=== PATIENT | male | born 1960 | race African-American/Black ===

== ENCOUNTER 2016-08-13 07:36 | Inpatient (IN) ==
[2016-08-13 08:17] LABS: Basophils % 0.1 % (0.0-0.8); Eosinophils % 0.5 % (0.00-10.9); Hematocrit 41.1 VOL% (42.0-52.0); Hemoglobin 14.4 GM/DL (14.0-18.0); Immature Granulocytes % 0.3 %; Immature Granulocytes Absolute 0.02 #; Lymphocytes # 1.4 10*3/uL (1.4-4.0); Lymphocytes % 19.1 % (21.2-54.2); Mean Corpuscular Hemoglobin 32 PG (27-34); Mean Corpuscular Volume 89.9 FL (87-102); Mean Platelet Volume 10.1 FL (9.6-12.0); Monocytes # 0.6 10*3/uL (0.11-0.8); Monocytes % 8.5 % (1.7-12.7); Neutrophils # 5.2 10*3/uL (1.4-7.4); Neutrophils % 71.5 % (38.7-73.9); Platelet Count 181 10*3/uL (130-400); Red Blood Count 4.57 10*6/uL (3.8-5.5); White Blood Count 7.3 10*3/uL (4.5-13.71)
--- NOTE | 2016-08-13 08:43 | XRay Report ---
History: Abdominal pain radiating to back. Chronic pancreatitis Date: 08/13/2016 Study: Flat and erect abdomen Comparison exam: Abdominal x-ray August 10, 2016 There is no evidence of pneumoperitoneum. The bowel gas pattern is nonobstructive without gross mass lesion. No radiopaque calculi are seen. Phleboliths overlie the pelvis. The osseous structures are unremarkable. Impression: No acute abdominal process PROCEDURE INTERPRETED AT [facility] DEPARTMENT OF RADIOLOGY Final Report Signed by: Dr. Belle Jolly
[2016-08-13 08:46] LABS: Albumin 3.8 G/DL (3.4-5.0); Bilirubin,Total 0.5 MG/DL (0.2-1.0); Calcium 9.3 MG/DL (8.5-10.1); Potassium 4.2 MMOL/L (3.5-5.1); Total Protein 7.9 G/DL (6.4-8.3)
[2016-08-13 08:59] LABS: Lactic Acid 1.2 MMOL/L (0.4-2.0)
[2016-08-13] MEDS ORDERED: hydrALAZINE 20 MG/1 ML VIAL IV STA ×2 (09:16→11:24)
[2016-08-13 09:42] LABS: Barbiturates Screen,Urine Negative (Negative); Benzodiazepines Screen,Urine Negative (Negative); Cannabinoid Screen,Urine Negative (Negative); Opiate Screen,Urine Positive (Negative); Phencyclidine Screen,Urine Negative (Negative)
[2016-08-13] MEDS ORDERED: hydrALAZINE 20 MG/1 ML VIAL ONE (09:57)
[2016-08-13] MEDS ORDERED: ONDANSETRON 4 MG/2 ML VIAL IV STA (09:58)
[2016-08-13] MEDS ORDERED: HYDROmorphone 2 MG/1 ML VIAL IV STA (09:58)
[2016-08-13] MEDS ORDERED: ONDANSETRON 4 MG/2 ML VIAL ONE (10:43)
[2016-08-13] MEDS ORDERED: HYDROmorphone 2 MG/1 ML VIAL ONE (10:43)
--- NOTE | 2016-08-13 11:07 | Emergency Department Note ---
Stevie Bull Brittany, am scribing for, and in the presence of, Mynor Parks MD 08:04. Charly Bull Doug C, MD, personally performed the services described in this documentation, ascribed by Keri Hubbard in my presence, and it is both accurate and complete . Arrival - Arrival Chief Complaint: Abdominal / Flank Pain Stated Complaint: back pain ED Nursing Triage Note: c/o abd pain radiating to back that has been hurting for a while. states that his pancreatitis is flared up and he needs to be admitted. seen yesterday in ED Mode of Arrival: Ambulatory Limitations: No Limitations Source: Patient, RN Notes Reviewed Time Seen by Provider: 08/13/16 08:02 - History of Present Illness HPI Narrative: Patient comes in today complaining of abdominal pain. Patient states he is just in the emergency room yesterday with the same complaint. He has a history of chronic pancreatitis and tells me he is having a flareup. He denies use of alcohol. He is not having any fever or chills associated with this. Allergies/Adverse Reactions: Allergies Allergy/AdvReac Type Severity Reaction Status Date / Time No Known Allergies Allergy Verified 08/06/16 00:07 Home Medications: Home Medications Medication Instructions Recorded Confirmed Type Allopurinol 150 mg PO DAILY 07/29/16 08/13/16 History Amitriptyline [Elavil] 25 mg PO DAILY 07/29/16 08/13/16 History Insulin Aspart Prot/Asp 70/30 30 unit SUBCUT BID 07/29/16 08/13/16 History [NovoLOG Mix 70/30] Labetalol Tab [Trandate Tab] 200 mg PO BID 07/29/16 08/13/16 History Lisinopril/Hydrochlorothiazide 1 each PO DAILY 07/29/16 08/13/16 History [Lisinopril-Hctz 20-12.5 mg Tab] Omeprazole 40 mg PO DAILY 07/29/16 08/13/16 History Rosuvastatin [Crestor] 10 mg PO BEDTIME 07/29/16 08/13/16 History metFORMIN [Glucophage] 850 mg PO BID W/MEALS 07/29/16 08/13/16 History HYDROcodone/ACETAMIN 10-325 [[place] 1 tablet PO Q6H PRN #30 tablet 08/12/1608/13 Rx 10325] Review of System - Review of System 12 point system: reviewed and no additional remarkable complaints except as stated - Review of System Constitutional: Absent: chills, fever Eyes: Absent: vision change Head/Ears/Nose/Throat: Absent: nasal drainage, sore throat Respiratory: Absent: cough, respiratory distress Cardiovascular: Absent: chest pain, palpitations Gastrointestinal: Present: abdominal pain. Absent: nausea, vomiting, diarrhea, constipation Genitourinary male: Absent: urgency, dysuria, frequency Musculoskeletal: Absent: arm pain, back pain, leg pain, neck pain Skin: Absent: rash Neurological: Absent: headache Psychiatric: Absent: anxiety, depression Endocrine: Absent: fatigue Hematological/Lymphatic: Absent: easy bleeding, easy bruising Medical,Surgical,& Family Hx - Medical History Cardio: History of: Hypertension Neurology: No history of: Brain Aneurysm, Cerebral Hemorrhage, Cerebrovascular Accident , Cerebral Palsy, Dementia, Migraine, Multiple Sclerosis, Parkinson's Disease, Peripheral Neuropathy, Seizures, TIA, Vertigo, Neurologocal Cancer HEENT: History of: Eye Problem (wear glasses) Endocrine: History of: Diabetes Mellitus (IDDM), Diabetes Mellitus (NIDDM) Rheumatology: History of;: Gout Gastrointestinal: History of: GERD, Pancreatitis (ETOH abuse Hx) Musculoskeletal: History of: Musculoskeletal Problems (Hardware to Left ankle) No history of: Amputation Hematology: No history of: Blood Transfusion Reaction - Surgical History Thoracic Surgeries: Patient denies;: Organ Transplant, Lobectomy Neurologic Surgeries: Patient denies: Brain Aneurysm, Cerebral Hemorrhage, Neurologic Surgery HEENT Surgeries: Patient denies: Tonsilectomy & Adenoidectomy Abdominal Surgeries: Surgical HX of: Colonoscopy, EGD Orthopedic Surgeries: Patient denies;: Implanted Devices, Orthopedic Surgery, Spinal Surgery, Total Hip Replacement, Total Knee Replacement - Family History Family History: Reports;: Family Diabetes, Family Hypertension - Social History Smoking Status: Current every day smoker Frequency of Alcohol Use: None Type of Drug Use: None Exam Vital Signs: Vital Signs Temperature 97.9 F 08/13/16 07:38 Pulse Rate 88 08/13/16 08:37 Respiratory Rate 18 08/13/16 08:37 Blood Pressure 172/124 08/13/16 08:37 O2 Sat by Pulse Oximetry 98 08/13/16 08:37 - General General appearance: alert, in no apparent distress - Head Head exam: Present: atraumatic, normocephalic - Eye Eye exam: Present: PERRL, EOMI - ENT ENT exam: Present: mucous membranes moist, TM's normal bilaterally - Neck Neck exam: Present: full ROM, trachea midline. Absent: tenderness - Chest Chest inspection: Present: symmetric chest wall rise. Absent: tenderness - Respiratory Respiratory exam: Present: normal lung sounds bilaterally. Absent: rales, rhonchi, wheezes - Cardiovascular Cardiovascular exam: Present: regular rate, normal rhythm, normal heart sounds. Absent: murmur, rubs, gallop - Abdominal Exam Abdominal exam: Present: soft, tenderness (upper abdomen), normal bowel sounds. Absent: distention - Extremities Exam Extremities exam: Present: full ROM. Absent: tenderness - Back Exam Back exam: Present: full ROM. Absent: tenderness - Neurological Exam Neurological exam: Present: alert, oriented X3 - Psychiatric Psychiatric exam: Present: normal affect, normal mood - Skin Skin exam: Present: warm, dry, intact, normal color Course Course Narrative: Patient's clinical presentation, laboratory and radiographic findings were discussed with Dr. Arcadio Engle who will evaluate the patient for admission. Results - Labs CBC & BMP: 08/13/16 08:08 08/13/16 08:08 Lab Results: I have reviewed the patients labs Labs: Laboratory Tests 08/13/16 08:08 WBC 7.3 D RBC 4.57 D Hgb 14.4 D Hct 41.1 L MCV 89.9 MCH 32 MCHC 35.0 RDW 13.0 Plt Count 181 D MPV 10.1 Neut % (Auto) 71.5 Lymph % (Auto) 19.1 L Greer % (Auto) 8.5 Eos % (Auto) 0.5 Baso % (Auto) 0.1 Neut # (Auto) 5.2 Lymph # (Auto) 1.4 Greer # (Auto) 0.6 Eos # (Auto) 0.0 Baso # (Auto) 0.0 Immature Gran % 0.3 Nucleated RBC % 0.0 Immature Gran # 0.02 Nucleated RBCs # 0.00 Laboratory Tests 08/13/16 08:08 Sodium 143 Potassium 4.2 Chloride 104 Carbon Dioxide 29 Anion Gap 14.2 BUN 8 Creatinine 0.90 GFR Calculation 142 BUN/Creatinine Ratio 8.00 Glucose 109 H Calculated Osmolality 283.0 Calcium 9.3 Total Bilirubin 0.50 AST 25 ALT 22 Alkaline Phosphatase 77 Total Protein 7.9 Albumin 3.8 Globulin 4.1 H Albumin/Globulin Ratio 0.9 L Lipase 1034.0 H D Laboratory Tests 08/13/16 09:02 Urine Opiates Screen Positive H Ur Barbiturates Screen Negative Ur Phencyclidine Scrn Negative U Amphetamine/Methamph Negative U Benzodiazepines Scrn Negative U Cocaine Metab Screen Negative U Cannabinoids Screen Negative - Diagnostic Findings Procedure: Abdominal x-ray: report reviewed by me (No acute abdominal process.) , CT Abdomen and Pelvis: report reviewed by me (Pancreatic pseudocyst noted.) Disposition Clinical Impression: Acute pancreatitis, Pancreatic pseudocyst Case discussed with: patient Disposition: Still a Patient Condition: Stable Time of Disposition: 11:06
--- NOTE | 2016-08-13 11:14 | CT Report ---
History: Pancreatitis Date: 08/13/2016 Study: CT abdomen and pelvis with IV contrast Comparison exam: CT abdomen and pelvis July 29, 2016 Technique: Spiral CT sections were obtained from the lung bases to the pubic symphysis following 100 mL Omnipaque 350 IV. Total DLP measures 806.7 mGy*cm. CT abdomen: The partially visualized lung bases are clear. There is no gross pleural or pericardial effusion. There is minimal diffuse fatty infiltration of the liver. The liver, biliary ducts, gallbladder, adrenal glands, and kidneys are otherwise stable in appearance without change. There is a benign 11 mm simple cyst in the anterior mid left kidney. There is again noted to be a fluid density cystic lesion in the head of the pancreas compatible with pseudocyst. This measures 5 cm diameter as compared to 5.8 cm in the axial plane on the previous study. There is no interval worsening in the appearance of the pancreas. There is again noted be a complex 4 cm fluid collection at posterior margin of the spleen, chronic in nature. There is no aortic aneurysm. There is no evidence of pneumoperitoneum or bowel obstruction. The appendix is normal. There is circumaortic left renal vein. There is no lymphadenopathy by short axis diameter criteria. CT pelvis: No pelvic mass is seen. There is some mild free fluid in the pelvis which is slightly increased. There is chronic L5 spondylolysis bilaterally without spondylolisthesis. Impression: Persistent but mildly improved pancreatic pseudocyst compared to the previous study. Increased mild free fluid in the pelvis which could be related to pancreatitis. Otherwise unchanged PROCEDURE INTERPRETED AT [facility] DEPARTMENT OF RADIOLOGY Final Report Signed by: Dr. Belle Jolly
--- NOTE | 2016-08-13 11:29 | Hospitalist History & Physical ---
Assessment and Plan - Time spent with patient Time spent with patient: Greater than 30 minutes (1) Acute pancreatitis Status: Acute Assessment and plan: Patient be readmitted with acute on chronic pancreatitis. We will hold him nothing by mouth and hydrate. We'll provide IV proton pump inhibitor, IV analgesics, IV anti-emetics. We'll repeat laboratory studies in the a.m. We' ll go ahead and consult GI for any further recommendations at this time. Current Visit: No (2) Diabetes mellitus Status: Chronic Assessment and plan: We'll hold him nothing by mouth and provide IV hydration. We'll place him on Accu-Cheks with sliding scale insulin only at this time. Current Visit: Yes Qualifiers: Diabetes mellitus type: type 2 (3) Pseudocyst of pancreas Status: Chronic Assessment and plan: Patient has history of pancreatic pseudocyst. This is noted on CT scan today and may be slightly improved. We'll have GI review and make any further recommendations. Current Visit: No (4) Hypertension Status: Acute Assessment and plan: Patient has chronic essential hypertension. He is hypertensive at this point likely secondary to his pain. We'll treat his pain and then provide as needed antihypertensives along with routine IV Vasotec while being held nothing by mouth. Current Visit: Yes Qualifiers: Hypertension type: essential hypertension Qualified Code(s): I10 - Essential (primary) hypertension History of Present Illness Chief complaint: abdominal pain History of present illness: Mr. Kamara is a 56 year old male with a history of pancreatitis who was discharged on 08/12/16, however returned on the supervisor inspection room of 08/13/16 and was discharged from the emergency room. He came back approximately 8 a.m. with increasing abdominal pain and workup revealed elevated lipase of greater than [address] scan was performed which revealed pancreatic pseudocyst which may be slightly improved from prior. He denies any fever, chills, nausea, vomiting , diarrhea, constipation, melena, hematochezia, hematemesis. He states that he did not have any alcohol to drink yesterday or last night. He states he has been drinking some water but it increases his abdominal discomfort and he's been avoiding it. At this time he'll be readmitted for IV hydration and pain control. We'll consult GI to assist with any further recommendations. Home Medications Medication Instructions Recorded Confirmed Type Allopurinol 150 mg PO DAILY 07/29/16 08/13/16 History Amitriptyline [Elavil] 25 mg PO DAILY 07/29/16 08/13/16 History Insulin Aspart Prot/Asp 70/30 30 unit SUBCUT BID 07/29/16 08/13/16 History [NovoLOG Mix 70/30] Labetalol Tab [Trandate Tab] 200 mg PO BID 07/29/16 08/13/16 History Lisinopril/Hydrochlorothiazide 1 each PO DAILY 07/29/16 08/13/16 History [Lisinopril-Hctz 20-12.5 mg Tab] Omeprazole 40 mg PO DAILY 07/29/16 08/13/16 History Rosuvastatin [Crestor] 10 mg PO BEDTIME 07/29/16 08/13/16 History metFORMIN [Glucophage] 850 mg PO BID W/MEALS 07/29/16 08/13/16 History HYDROcodone/ACETAMIN 10-325 [[place] 1 tablet PO Q6H PRN #30 tablet 08/12/1608/13 Rx 10-325] Allergies Allergy/AdvReac Type Severity Reaction Status Date / Time No Known Allergies Allergy Verified 08/06/16 00:07 Medical,Surgical,& Family Hx - Medical History Cardio: History of: Hypertension Neurology: No history of: Brain Aneurysm, Cerebral Hemorrhage, Cerebrovascular Accident , Cerebral Palsy, Dementia, Migraine, Multiple Sclerosis, Parkinson's Disease, Peripheral Neuropathy, Seizures, TIA, Vertigo, Neurologocal Cancer HEENT: History of: Eye Problem (wear glasses) Endocrine: History of: Diabetes Mellitus (NIDDM) Rheumatology: History of;: Gout Gastrointestinal: History of: GERD, Pancreatitis (ETOH abuse Hx) Musculoskeletal: History of: Musculoskeletal Problems (Hardware to Left ankle) No history of: Amputation Hematology: No history of: Blood Transfusion Reaction - Surgical History Thoracic Surgeries: Patient denies;: Organ Transplant, Lobectomy Neurologic Surgeries: Patient denies: Brain Aneurysm, Cerebral Hemorrhage, Neurologic Surgery HEENT Surgeries: Patient denies: Tonsilectomy & Adenoidectomy Abdominal Surgeries: Surgical HX of: Colonoscopy, EGD Orthopedic Surgeries: Patient denies;: Implanted Devices, Orthopedic Surgery, Spinal Surgery, Total Hip Replacement, Total Knee Replacement - Family History Family History: Reports;: Family Diabetes, Family Hypertension - Social History Smoking Status: Current every day smoker Frequency of Alcohol Use: None Type of Drug Use: None Marital Status: Single Lives With:: Alone Functional capacity: independent ambulation 12 point system: reviewed and no additional remarkable complaints except as stated Exam - Constitutional Vitals: Period Temp Pulse Resp BP Sys/Mendoza Pulse Ox Last 24 Hr 97.9 F 87-90 18-20 172-208/121-125 97-98 General appearance: mild distress - Head Head exam: Present: normocephalic, atraumatic - Eye Eye exam: Present: EOMI. Absent: scleral icterus Pupils: Present: DENYS - ENT ENT exam: Present: normal oropharynx - Neck Neck exam: Absent: lymphadenopathy, meningismus, tenderness, thyromegaly - Respiratory Respiratory exam: Present: clear to auscultation bilaterally. Absent: rales, rhonchi, wheezes - Cardiovascular Cardiovascular exam: Present: regular rate and rhythm. Absent: gallop, JVD, tachycardia - GI/Abdominal GI/Abdominal exam: Present: normal bowel sounds, tenderness (diffusely tender but greatest in the epigastrium with positive guarding but no rebound), soft. Absent: distended, mass, rebound - Extremities Exam Extremities exam: Absent: calf tenderness, edema - Back Exam Back exam: Present: normal inspection - Neurological Exam Neurological exam: Present: alert, oriented X3, CN II-XII intact. Absent: motor sensory deficit - Psychiatric Psychiatric exam: Present: normal affect, normal mood. Absent: agitated, anxious - Skin Skin exam: Present: warm, dry. Absent: erythema, rash Results - Labs CBC & BMP: 08/13/16 08:08 08/13/16 08:08 Lab Results: I have reviewed the past 24 hour labs - Diagnostic Findings Procedure: KUB x-ray: report reviewed by me, CT Abdomen and Pelvis: report reviewed by me Quality Measures - VTE Deep Vein Thrombosis/Pulmonary Embolism Present on Admission: No
[2016-08-13] MEDS ORDERED: LORazepam 2 MG/1 ML VIAL IV PRN (12:51)
[2016-08-13] MEDS ORDERED: MORPHINE 2 MG/1 ML SYRINGE IV PRN (12:51)
[2016-08-13] MEDS ORDERED: ONDANSETRON 4 MG/2 ML VIAL IV PRN (12:51)
[2016-08-13] MEDS ORDERED: hydrALAZINE 20 MG/1 ML VIAL IV PRN (12:51)
[2016-08-13] MEDS ORDERED: DEXTROSE 50% 25 GM/50 ML VIAL IV PRN (12:51)
[2016-08-13] MEDS ORDERED: GLUCAGON 1 MG VIAL IM PRN (12:51)
[2016-08-13] MEDS: INSULIN REGULAR 100 UNIT/ML SUBCUT SCH ×2 (13:00→17:38)
[2016-08-13] MEDS: SODIUM CHLORIDE 0.9% 1,000 ML IV SCH ×2 (13:01→19:42)
[2016-08-13] MEDS: ENOXAPARIN 40 MG/0.4 ML SYRINGE SUBCUT SCH (13:17)
[2016-08-13] MEDS: PANTOPRAZOLE 40 MG VIAL IV SCH (13:17)
[2016-08-13] MEDS: ENALAPRIL 2.5 MG/2 ML VIAL IV SCH ×2 (13:33→20:18)
[2016-08-13] MEDS: THIAMINE 200 MG/2 ML VIAL IV SCH (13:34)
[2016-08-13] MEDS ORDERED: HYDROmorphone 2 MG/1 ML VIAL IM PRN (14:32)
[2016-08-13] MEDS ORDERED: HYDROmorphone 2 MG/1 ML VIAL IV PRN (14:40)
--- NOTE | 2016-08-13 15:31 | Gastrointestinal Progress Note ---
Assessment and Plan (1) Constipation due to opioid therapy Status: Acute Assessment and plan: The patient left the hospital and unfortunately decided to imbibe and some fairly high fat high protein foods which may have set his pancreatitis off. Indeed he also likely produce worsening of his constipation in association with fluid shifts and initiation of peristalsis with the first fatty foods he had eaten since his hospitalization starting on 07/29/16. Narcotic use is certainly exacerbating his underlying constipation. We are going to give him an enema or to and as well as starting MiraLAX which should improve his pain considerably if this is all constipation-induced. Has not had a mild increase in his pancreatic enzymes back up from 233 to over thousand this time. We will need to follow this over time on a clear liquid diet. I don't believe he needs to be taken all the way back to being nothing by mouth for 5 years enough water and liquids to hydrate adequately in anticipation of future bowel movements. I' m cutting his narcotic dose in half. Current Visit: Yes (2) Acute pancreatitis Status: Acute Assessment and plan: Again this patient's lipase level has increased from 233-->1034. I think this is most likely due to exposure to high fat foods but alcohol may have played a role. We'll continue to observe on a clear liquid diet at this point. When he begins to take a diet again would strongly suggest use of moderate protein low fat diet. Current Visit: Yes (3) Pancreatic pseudocyst Status: Acute Assessment and plan: Will not reimage yet as it has not been 8 weeks unless the patient's lipase level continues to climb despite the above measures. Dr. Guevara will be back in town the day after tomorrow to resume care of this interesting individual. Current Visit: Yes Gastroenterology - PN: Subj Interval history: This is a patient who was seen by Dr. Guevara on his last admission please see full consult dictated by Dr. Pulliam and then follow-up notes by Dr. Guevara up until 08/02/16. The patient states that he was essentially well and had no pain when he was discharged from the hospital yesterday on . Although he has a history of drinking he denies alcohol intake. He does state that he has not had a bowel movement in about for 5 days-- upon discharge he decided to eat some deer meat "slathered" in barbecue sauce, and developed sharp abdominal pain. His pseudocyst-type pain had been descibed as right upper lateral in intensity, and this new onset of pain was in the the low epigastric/periumbilical distribution with the ingestion of his food-- he rated the new pain as an 8 out of 10 in intensity with sharp cramping component to it consistent with constipation/peristaltic-type pain. He was readmitted to the hospital, for worsening of his "pancreatitis". The patient's lipase level had dropped down to 233 on 08/12/16 from its high point of 4012 on 07/29/16. Upon re-admission the patient's lipase level had increased back to 1034. Again the patient emphatically denies that he was drinking any alcohol on . Having mild nausea but no vomiting no fevers/chills. We'll need to see if the pain persists after improvement of underlying constipation and were gradually reintroduce a low-fat diet. Narcotics may make the constipation worsened I will probably cut these back significantly. Exam (Progress Note) - Constitutional Vitals: Period Temp Pulse Resp BP Sys/Mendoza Pulse Ox Last 24 Hr 98.3 F 101-109 18-20 170-185/98-110 96-100 General appearance: mild distress - Head Head exam: Present: normocephalic, atraumatic - Eye Eye exam: Present: EOMI Pupils: Present: DENYS - Respiratory Respiratory exam: Present: clear to auscultation bilaterally - Cardiovascular Cardiovascular exam: Present: diastolic murmur, regular rate and rhythm. Absent : systolic murmur - GI/Abdominal GI/Abdominal exam: Present: normal bowel sounds, tenderness (left cardia of the right lower quadrants.), soft - Neurological Exam Neurological exam: Present: alert, oriented X3, CN II-XII intact - Psychiatric Psychiatric exam: Present: normal affect, normal mood - Skin Skin exam: Present: warm Results - Labs CBC & BMP: 08/13/16 08:08 08/13/16 08:08 Specialty Discharge - Follow Up or Referrals - Discharge Medications No Action Allopurinol 150 mg PO DAILY Insulin Aspart Prot/Asp 70/30 [NovoLOG Mix 70/30] 30 unit SUBCUT BID HYDROcodone/ACETAMIN 10-325 [[place] 10-325] 1 tablet PO Q6H PRN #30 tablet PRN Reason: Pain Amitriptyline [Elavil] 25 mg PO DAILY metFORMIN [Glucophage] 850 mg PO BID W/MEALS Rosuvastatin [Crestor] 10 mg PO BEDTIME Lisinopril/Hydrochlorothiazide [Lisinopril-Hctz 20-12.5 mg Tab] 1 each PO DAILY Omeprazole 40 mg PO DAILY Labetalol Tab [Trandate Tab] 200 mg PO BID
[2016-08-13] MEDS: POLYETHYLENE GLYCOL POWDER 17 GM PACK PO SCH ×2 (16:02→19:59)
[2016-08-13] MEDS: HYDROmorphone 2 MG/1 ML VIAL IV PRN (20:14)
[2016-08-14] MEDS: INSULIN REGULAR 100 UNIT/ML SUBCUT SCH ×3 (00:10→12:47)
[2016-08-14] MEDS: ENALAPRIL 2.5 MG/2 ML VIAL IV SCH ×2 (02:28→09:37)
[2016-08-14 06:16] LABS: Basophils % 0.4 % (0.0-0.8); Eosinophils # 0.1 10*3/uL (0.0-0.87); Eosinophils % 1.5 % (0.00-10.9); Hematocrit 35.7 VOL% (42.0-52.0); Hemoglobin 12.2 GM/DL (14.0-18.0); Immature Granulocytes % 0.2 %; Immature Granulocytes Absolute 0.01 #; Lymphocytes # 2.1 10*3/uL (1.4-4.0); Lymphocytes % 40.4 % (21.2-54.2); Mean Corpuscular HGB Conc 34.2 GM/DL (32-36); Mean Corpuscular Hemoglobin 31 PG (27-34); Mean Corpuscular Volume 89.5 FL (87-102); Mean Platelet Volume 10.8 FL (9.6-12.0); Monocytes # 0.6 10*3/uL (0.11-0.8); Monocytes % 11.4 % (1.7-12.7); Neutrophils # 2.4 10*3/uL (1.4-7.4); Neutrophils % 46.1 % (38.7-73.9); Platelet Count 179 10*3/uL (130-400); Red Blood Count 3.99 10*6/uL (3.8-5.5); Red Cell Distribution Width 13.2 % (9.3-17.3); White Blood Count 5.2 10*3/uL (4.5-13.71)
[2016-08-14 06:46] LABS: Albumin 3.1 G/DL (3.4-5.0); Bilirubin,Total 0.4 MG/DL (0.2-1.0); Calcium 7.9 MG/DL (8.5-10.1); Osmolality,Calculated 279.1 MOS/KG (273-304); Potassium 4.2 MMOL/L (3.5-5.1); Total Protein 6.4 G/DL (6.4-8.3)
[2016-08-14] MEDS: ENOXAPARIN 40 MG/0.4 ML SYRINGE SUBCUT SCH (09:36)
[2016-08-14] MEDS: THIAMINE 200 MG/2 ML VIAL IV SCH (09:36)
[2016-08-14] MEDS: POLYETHYLENE GLYCOL POWDER 17 GM PACK PO SCH (09:36)
[2016-08-14] MEDS: PANTOPRAZOLE 40 MG VIAL IV SCH (09:36)
[2016-08-14] MEDS: HYDROmorphone 2 MG/1 ML VIAL IV PRN (09:51)
--- NOTE | 2016-08-14 09:53 | Discharge Summary ---
Hospital Course - Hospital Course Hospital Course: Patient was rehospitalized with recurrent abdominal pain and constipation. He denied alcohol use. His lipase had increased to 1034. It had decreased to 331 by discharge. He received an enema which relieved his constipation. He was eating well with no abdominal pain by the time of discharge. Diagnosis - Discharge Diagnosis (1) Acute pancreatitis Status: Acute (2) Pseudocyst of pancreas Status: Chronic (3) Constipation due to opioid therapy Status: Acute (4) Diabetes mellitus Status: Chronic (5) Hypertension Status: Chronic Specialty Discharge - Follow Up or Referrals - Discharge Medications No Action Allopurinol 150 mg PO DAILY Insulin Aspart Prot/Asp 70/30 [NovoLOG Mix 70/30] 30 unit SUBCUT BID HYDROcodone/ACETAMIN 10-325 [[place] 10-325] 1 tablet PO Q6H PRN #30 tablet PRN Reason: Pain Amitriptyline [Elavil] 25 mg PO DAILY metFORMIN [Glucophage] 850 mg PO BID W/MEALS Rosuvastatin [Crestor] 10 mg PO BEDTIME Lisinopril/Hydrochlorothiazide [Lisinopril-Hctz 20-12.5 mg Tab] 1 each PO DAILY Omeprazole 40 mg PO DAILY Labetalol Tab [Trandate Tab] 200 mg PO BID Discharge Plan - Discharge Data Condition at Discharge: Stable Discharge Diet: advance to your usual diet Activity: resume usual activities as tolerated - Discharge Medications New Polyethylene Glycol Powder [Miralax] 17 gm PO TID powder Continue Allopurinol 150 mg PO DAILY Insulin Aspart Prot/Asp 70/30 [NovoLOG Mix 70/30] 30 unit SUBCUT BID HYDROcodone/ACETAMIN 10-325 [[place] 10-325] 1 tablet PO Q6H PRN #30 tablet PRN Reason: Pain Amitriptyline [Elavil] 25 mg PO DAILY metFORMIN [Glucophage] 850 mg PO BID W/MEALS Rosuvastatin [Crestor] 10 mg PO BEDTIME Lisinopril/Hydrochlorothiazide [Lisinopril-Hctz 20-12.5 mg Tab] 1 each PO DAILY Omeprazole 40 mg PO DAILY Labetalol Tab [Trandate Tab] 200 mg PO BID - Follow Up or Referral - Forms/Instructions Exam - Constitutional Vitals: Period Temp Pulse Resp BP Sys/Mendoza Pulse Ox Last 24 Hr 98.1 F-98.3 F 84-109 18-20 115-197/64-111 96-100 General appearance: normal weight, no acute distress - Respiratory Respiratory exam: Present: clear to auscultation bilaterally - Cardiovascular Cardiovascular exam: Present: regular rate and rhythm - GI/Abdominal GI/Abdominal exam: Present: normal bowel sounds, soft, other (nontender) - Extremities Exam Extremities exam: Present: normal inspection - Skin Skin exam: Present: normal color Discharge Results Labs on day of discharge: Labs from last 24 hours 08/14/16 08/14/16 08/14/16 08:17 05:46 04:43 WBC RBC Hgb Hct MCV MCH MCHC RDW Plt Count MPV Neut % (Auto) Lymph % (Auto) [place] % (Auto) Eos % (Auto) Baso % (Auto) Neut # (Auto) Lymph # (Auto) [place] # (Auto) Eos # (Auto) Baso # (Auto) Immature Gran % Nucleated RBC % Immature Gran # Nucleated RBCs # Sodium Potassium Chloride Carbon Dioxide Anion Gap BUN Creatinine GFR Calculation BUN/Creatinine Ratio Glucose POC Glucose 135 H 86 Calculated Osmolality Calcium Total Bilirubin AST ALT Alkaline Phosphatase Total Protein Albumin Globulin Albumin/Globulin Ratio Lipase 331.0 D 08/14/16 08/14/16 08/14/16 04:43 04:43 00:06 WBC 5.2 RBC 3.99 Hgb 12.2 L D Hct 35.7 L MCV 89.5 MCH 31 MCHC 34.2 RDW 13.2 Plt Count 179 MPV 10.8 Neut % (Auto) 46.1 Lymph % (Auto) 40.4 [place] % (Auto) 11.4 Eos % (Auto) 1.5 Baso % (Auto) 0.4 Neut # (Auto) 2.4 Lymph # (Auto) 2.1 [place] # (Auto) 0.6 Eos # (Auto) 0.1 Baso # (Auto) 0.0 Immature Gran % 0.2 Nucleated RBC % 0.0 Immature Gran # 0.01 Nucleated RBCs # 0.00 Sodium 142 Potassium 4.2 Chloride 106 Carbon Dioxide 25 Anion Gap 15.2 H BUN 8 Creatinine 0.80 GFR Calculation 147 BUN/Creatinine Ratio 10.00 Glucose 80 POC Glucose 110 H Calculated Osmolality 279.1 Calcium 7.9 L Total Bilirubin 0.40 AST 15 ALT 13 L Alkaline Phosphatase 62 Total Protein 6.4 Albumin 3.1 L Globulin 3.3 Albumin/Globulin Ratio 0.9 L Lipase 01/01/17 01/01/17 17:28 12:58 WBC RBC Hgb Hct MCV MCH MCHC RDW Plt Count MPV Neut % (Auto) Lymph % (Auto) [place] % (Auto) Eos % (Auto) Baso % (Auto) Neut # (Auto) Lymph # (Auto) [place] # (Auto) Eos # (Auto) Baso # (Auto) Immature Gran % Nucleated RBC % Immature Gran # Nucleated RBCs # Sodium Potassium Chloride Carbon Dioxide Anion Gap BUN Creatinine GFR Calculation BUN/Creatinine Ratio Glucose POC Glucose 103 112 H Calculated Osmolality Calcium Total Bilirubin AST ALT Alkaline Phosphatase Total Protein Albumin Globulin Albumin/Globulin Ratio Lipase DS: Provider Date of admission: 08/13/16 11:20 Primary care physician: Mechelle Adams DO Attending physician on admission: Mariano Dykes Consults: 08/13/16 12:51 Consult to Physician [CONS] Routine Comment: recurrent panreatitis with pseudocyst Consulting Provider: Ismael Acevedo Person Notified: Dr. Acevedo Date Notified: 08/13/16 Time Notified: 14:20 Consult Notification Comment: Spoke with Dr. acevedo 08/13/16 12:58 Consult to Pharmacy [CONS] Routine Reason for Pharmacy Consult: Adjust Meds Renal Funct 08/13/16 13:07 Consult to Pastoral Services [CONS] Routine Comment: Pastoral Screen: Request Metal [employer] Visit Pastoral Screen Source of Request: Patient Discharging clinician: Samuel Zamudio Expected date of discharge: 08/14/16
[2016-08-14] MEDS: SODIUM CHLORIDE 0.9% 1,000 ML IV SCH (10:38)
[2016-08-14 12:46] VITALS: BP 120/71
== END 2016-08-14 13:48 | disposition home or self-care (01) | DRG 439 ==
LOC: N.ED 07:36 → SUATTDRO 11:20 → N.EDINP 11:20 → N.2E 11:51
PROVIDERS: ADMIT Hospitalist

== ENCOUNTER 2016-12-22 16:58 | Inpatient (IN) ==
[2016-12-22] MEDS ORDERED: EPINEPHrine 1 MG/ML VIAL ONE (17:38)
[2016-12-22] MEDS ORDERED: diphenhydrAMINE 50 MG/1 ML VIAL IV STA (17:38)
[2016-12-22] MEDS ORDERED: EPINEPHrine 1 MG/ML VIAL SUBCUT STA (17:38)
[2016-12-22] MEDS ORDERED: methylPREDNISolone SOD SUC 125 MG/2 ML VIAL IV STA (17:38)
--- NOTE | 2016-12-22 17:38 | Emergency Department Note ---
Edi Bull Brooke, am scribing for, and in the presence of, Dee Irving DO 17:37 . IAristides Debra, DO, personally performed the services described in this documentation, ascribed by Radha Daley in my presence, and it is both accurate and complete [id number] . Arrival - Arrival Chief Complaint: Allergic Reaction Stated Complaint: Tongue Swollen Bad ED Nursing Triage Note: pt c/o swelling to tongue, onset 1200. pt denies shortness of breath but states is difficult to swallow. pt's speech is garbled. moderate angioedema noted to tongue. pt takes lisinopril. Mode of Arrival: Ambulatory Limitations: No Limitations Source: Patient, RN Notes Reviewed Time Seen by Provider: 12/22/16 17:30 - History of Present Illness HPI Narrative: Patient is a 56 year old male who presents to to the ED with c/o allergic reaction to Lisinopril. Patient's has edema to his face and tongue. He says he is having trouble swallowing. He says this has been ongoing for the past two days but he "didn't know the side effects of the medication." His last dose of Lisinopril was this morning. Patient has no other complaints. He has PMHx of HTN , dyslipidemia, diabetes, gout, enlarged prostate, GERD, pancreatitis, and left ankle hardware. Onset (ago): day(s) (2) Allergies/Adverse Reactions: Allergies Allergy/AdvReac Type Severity Reaction Status Date / Time No Known Allergies Allergy Verified 12/22/16 17:21 Home Medications: Home Medications Medication Instructions Recorded Confirmed Type Allopurinol 150 mg PO DAILY 07/29/16 12/22/16 History Amitriptyline [Elavil] 25 mg PO DAILY 07/29/16 12/22/16 History Insulin Aspart Prot/Asp 70/30 30 unit SUBCUT BID 07/29/16 12/22/16 History [NovoLOG Mix 70/30] Labetalol Tab [Trandate Tab] 200 mg PO BID 07/29/16 12/22/16 History Lisinopril/Hydrochlorothiazide 1 each PO DAILY 07/29/16 12/22/16 History [Lisinopril-Hctz 20-12.5 mg Tab] Omeprazole 40 mg PO DAILY 07/29/16 12/22/16 History Rosuvastatin [Crestor] 10 mg PO BEDTIME 07/29/16 12/22/16 History metFORMIN [Glucophage] 850 mg PO BID W/MEALS 07/29/16 12/22/16 History HYDROcodone/ACETAMIN 10-325 [[place] 1 tablet PO Q6H PRN #30 tablet 08/12/1612/22 Rx 10-325] Review of System - Review of System 12 point system: reviewed and no additional remarkable complaints except as stated - Review of System Constitutional: Absent: fever Head/Ears/Nose/Throat: Present: other (Tongue edema. Trouble swallowing) Respiratory: Absent: respiratory distress Skin: Present: other (facial edema). Absent: rash Medical,Surgical,& Family Hx - Medical History Cardio: History of: Hypertension Neurology: No history of: Brain Aneurysm, Cerebral Hemorrhage, Cerebrovascular Accident , Cerebral Palsy, Dementia, Migraine, Multiple Sclerosis, Parkinson's Disease, Peripheral Neuropathy, Seizures, TIA, Vertigo, Neurologocal Cancer HEENT: History of: Eye Problem (wear glasses) Endocrine: History of: Diabetes Mellitus (IDDM), Diabetes Mellitus (NIDDM), Dyslipidemia Rheumatology: History of;: Gout Genitourinary: History of: Prostate Problems (enlarged prostrate) Gastrointestinal: History of: GERD, Pancreatitis (ETOH abuse Hx) Musculoskeletal: History of: Musculoskeletal Problems (Hardware to Left ankle) No history of: Amputation Hematology: No history of: Blood Transfusion Reaction - Surgical History Thoracic Surgeries: Patient denies;: Organ Transplant, Lobectomy Neurologic Surgeries: Patient denies: Brain Aneurysm, Cerebral Hemorrhage, Neurologic Surgery HEENT Surgeries: Patient denies: Tonsilectomy & Adenoidectomy Abdominal Surgeries: Surgical HX of: Colonoscopy, EGD Orthopedic Surgeries: Patient denies;: Implanted Devices, Orthopedic Surgery, Spinal Surgery, Total Hip Replacement, Total Knee Replacement - Family History Family History: Reports;: Family Diabetes, Family Hypertension - Social History Smoking Status: Current every day smoker Frequency of Alcohol Use: None Type of Drug Use: None Exam Vital Signs: Vital Signs Temperature 98.5 F 12/22/16 17:18 Pulse Rate 107 H 12/22/16 17:18 Respiratory Rate 18 12/22/16 17:18 Blood Pressure 133/94 12/22/16 17:18 O2 Sat by Pulse Oximetry 97 12/22/16 17:18 - General General appearance: alert, in no apparent distress - Head Head exam: Present: atraumatic, normocephalic, other (facial edema) - Eye Eye exam: Present: normal appearance, PERRL, EOMI - ENT ENT exam: Present: other (Tongue edema) - Neck Neck exam: Present: normal inspection - Chest Chest inspection: Present: normal inspection, symmetric chest wall rise - Respiratory Respiratory exam: Present: normal lung sounds bilaterally - Cardiovascular Cardiovascular exam: Present: normal rhythm, tachycardia, normal heart sounds - Abdominal Exam Abdominal exam: Present: soft. Absent: distention, tenderness - Extremities Exam Extremities exam: Present: normal inspection - Back Exam Back exam: Present: normal inspection - Neurological Exam Neurological exam: Present: alert, oriented X3 - Psychiatric Psychiatric exam: Present: normal affect, normal mood - Skin Skin exam: Present: warm, dry, intact, normal color Course Course Narrative: spoke with hospitalist service who will admit pt for observation of angioedema. Disposition Clinical Impression: Angioedema Case discussed with: patient Disposition: Still a Patient Condition: Stable Time of Disposition: 17:57
[2016-12-22] MEDS ORDERED: methylPREDNISolone SOD SUC 125 MG/2 ML VIAL ONE (17:39)
[2016-12-22] MEDS ORDERED: diphenhydrAMINE 50 MG/1 ML VIAL ONE (17:39)
[2016-12-22] MEDS ORDERED: SODIUM CHLORIDE 0.9% 250 ML IV PRN (19:13)
[2016-12-22] MEDS ORDERED: ONDANSETRON 4 MG/2 ML VIAL IV PRN (19:39)
[2016-12-22] MEDS ORDERED: ACETAMINOPHEN 325 MG TABLET PO PRN (19:39)
[2016-12-22] MEDS ORDERED: hydrALAZINE 20 MG/1 ML VIAL IV PRN (19:39)
--- NOTE | 2016-12-22 19:42 | Hospitalist History & Physical ---
<José Cr - Last Filed: 12/22/16 19:55> Assessment and Plan (1) Angioedema Status: Acute Assessment and plan: Admit to ICU for monitoring. Prescribe steroids. Monitor respiratory status. Discontinue lisinopril. Current Visit: Yes (2) Diabetes mellitus Status: Acute Assessment and plan: Accuchecks achs. SSI. A1C in am. Monitor blood sugars Current Visit: No Qualifiers: Diabetes mellitus type: type 2 (3) Hypertension Status: Chronic Assessment and plan: Pt. stable. Restart home meds. Current Visit: No Qualifiers: Hypertension type: essential hypertension Qualified Code(s): I10 - Essential (primary) hypertension History of Present Illness Home Medications Medication Instructions Recorded Confirmed Type Allopurinol 150 mg PO DAILY 07/29/16 12/22/16 History Amitriptyline [Elavil] 25 mg PO DAILY 07/29/16 12/22/16 History Insulin Aspart Prot/Asp 70/30 30 unit SUBCUT BID 07/29/16 12/22/16 History [NovoLOG Mix 70/30] Labetalol Tab [Trandate Tab] 200 mg PO BID 07/29/16 12/22/16 History Lisinopril/Hydrochlorothiazide 1 each PO DAILY 07/29/16 12/22/16 History [Lisinopril-Hctz 20-12.5 mg Tab] Omeprazole 40 mg PO DAILY 07/29/16 12/22/16 History Rosuvastatin [Crestor] 10 mg PO BEDTIME 07/29/16 12/22/16 History metFORMIN [Glucophage] 850 mg PO BID W/MEALS 07/29/16 12/22/16 History HYDROcodone/ACETAMIN 10-325 [[place] 1 tablet PO Q6H PRN #30 tablet 08/12/1612/22 Rx 10-325] Allergies Allergy/AdvReac Type Severity Reaction Status Date / Time lisinopril AdvReac Severe ANAPHYLAXIS Verified 12/22/16 20:13 - Gastrointestinal Gastrointestinal: Absent: abdominal pain, nausea, vomiting - Genitourinary Genitourinary: Absent: dysuria, urinary frequency - Musculoskeletal Musculoskeletal: Absent: back pain, limited range of motion - Neurological Neurological: Absent: confusion, numbness - Psychiatric Psychiatric: Present: anxiety. Absent: depression - Endocrine Endocrine: Absent: fatigue - Hematologic/Lymphatic Hematologic/Lymphatic: Absent: easy bruising Exam - Constitutional Vitals: Period Temp Pulse Resp BP Sys/Mendoza Pulse Ox Last 24 Hr 98.6 F 92-96 15-22 126-162/87-98 96-99 <Eileen Dodd - Last Filed: 12/22/16 20:15> Assessment and Plan (1) Angioedema Status: Acute Assessment and plan: Discussed case with anesthesia and they did not feel that he needs to be prophylactically intubated. Discussed case with Dr. Lopez and ER physician. This was due to lisinopril. Patient did take a dose this morning. Continue Solu-Medrol 125 mg IV every 6 hours, Pepcid 20 mg IV every 12, Benadryl 25 mg IV every 6, 2 units FFP, check C inhibitor esterase Current Visit: Yes (2) Hypertension Status: Chronic Assessment and plan: no lisiniopril, hydralazine IV prn Current Visit: No Qualifiers: Hypertension type: essential hypertension Qualified Code(s): I10 - Essential (primary) hypertension (3) Diabetes mellitus Status: Acute Current Visit: No Qualifiers: Diabetes mellitus type: type 2 History of Present Illness Chief complaint: tongue swelling History of present illness: Mr. Kamara is a 56 year old male who presents to to the ED with c/o allergic reaction to Lisinopril. Patient's has edema to his face and tongue. He says he is having trouble swallowing. He says this has been ongoing for the past two days but he "didn't know the side effects of the medication." His last dose of Lisinopril was this morning. Patient has been taking lisinopril for a year. When he took it yesterday his lips started swelling first and that his tongue started swelling today but his lip lips were less swollen. He has PMHx of HTN, dyslipidemia, diabetes, gout, enlarged prostate, GERD, pancreatitis, and left ankle hardware. Medical,Surgical,& Family Hx - Medical History Cardio: History of: Hypertension Neurology: No history of: Brain Aneurysm, Cerebral Hemorrhage, Cerebrovascular Accident , Cerebral Palsy, Dementia, Migraine, Multiple Sclerosis, Parkinson's Disease, Peripheral Neuropathy, Seizures, TIA, Vertigo, Neurologocal Cancer HEENT: History of: Eye Problem (wear glasses) Endocrine: History of: Diabetes Mellitus (IDDM), Diabetes Mellitus (NIDDM), Dyslipidemia Rheumatology: History of;: Gout Genitourinary: History of: Prostate Problems (enlarged prostrate) Gastrointestinal: History of: GERD, Pancreatitis (ETOH abuse Hx) Musculoskeletal: History of: Musculoskeletal Problems (Hardware to Left ankle) No history of: Amputation Hematology: No history of: Blood Transfusion Reaction - Surgical History Thoracic Surgeries: Patient denies;: Organ Transplant, Lobectomy Neurologic Surgeries: Patient denies: Brain Aneurysm, Cerebral Hemorrhage, Neurologic Surgery HEENT Surgeries: Patient denies: Tonsilectomy & Adenoidectomy Abdominal Surgeries: Surgical HX of: Colonoscopy, EGD Orthopedic Surgeries: Patient denies;: Implanted Devices, Orthopedic Surgery, Spinal Surgery, Total Hip Replacement, Total Knee Replacement - Family History Family History: Reports;: Family Diabetes, Family Hypertension - Social History Smoking Status: Current every day smoker Frequency of Alcohol Use: None Type of Drug Use: None Marital Status: Lives With:: Spouse Functional capacity: independent ambulation - Constitutional Constitutional: Absent: fatigue, headache(s) - EENT Eyes: Absent: blurry vision, diplopia Ears: Absent: decreased hearing, ear discharge Nose, mouth and throat: Present: lip swelling, throat swelling, tongue swelling - Cardiovascular Cardiovascular: Absent: chest pain at rest, chest pain with activity, dyspnea, dyspnea on exertion, edema - Respiratory Respiratory: Absent: dyspnea, dyspnea on exertion Exam - Constitutional Vitals: Period Temp Pulse Resp BP Sys/Mendoza Pulse Ox Last 24 Hr 98.6 F 92-96 15-22 126-162/87-98 96-99 General appearance: normal weight, mild distress - Head Head exam: Present: normal inspection, normocephalic - Eye Eye exam: Present: EOMI. Absent: scleral icterus Pupils: Present: DENYS, normal accommodation - ENT ENT exam: Present: normal external ear exam, other (facial swelling, tongue swelling, no palatal swelling ) - Neck Neck exam: Absent: lymphadenopathy, thyromegaly - Respiratory Respiratory exam: Present: clear to auscultation bilaterally. Absent: rhonchi, wheezes - Cardiovascular Cardiovascular exam: Present: regular rate and rhythm. Absent: systolic murmur - GI/Abdominal GI/Abdominal exam: Present: normal bowel sounds, soft. Absent: tenderness - Extremities Exam Extremities exam: Present: normal inspection, normal capillary refill - Neurological Exam Neurological exam: Present: alert, oriented X3, CN II-XII intact, reflexes normal. Absent: motor sensory deficit - Psychiatric Psychiatric exam: Present: normal affect, normal mood - Skin Skin exam: Present: normal color, warm Results - Labs CBC & BMP: 12/22/16 19:30 12/22/16 19:30 Lab Results: I have reviewed the past 24 hour labs
[2016-12-22 19:54] LABS: Basophils % 0.4 % (0.0-0.8); Eosinophils % 0.4 % (0.00-10.9); Hematocrit 38.2 VOL% (42.0-52.0); Hemoglobin 13.3 GM/DL (14.0-18.0); Immature Granulocytes % 1.5 %; Lymphocytes # 1.4 10*3/uL (1.4-4.0); Mean Corpuscular HGB Conc 34.8 GM/DL (32-36); Mean Corpuscular Hemoglobin 32 PG (27-34); Mean Corpuscular Volume 91.4 FL (87-102); Mean Platelet Volume 11.1 FL (9.6-12.0); Monocytes # 0.4 10*3/uL (0.11-0.8); Monocytes % 6.4 % (1.7-12.7); Neutrophils # 4.8 10*3/uL (1.4-7.4); Neutrophils % 70.3 % (38.7-73.9); Platelet Count 132 T/CUMM (130-400); Red Blood Count 4.18 MC/CUMM (3.8-5.5); Red Cell Distribution Width 14.6 % (9.3-17.3); White Blood Count 6.9 T/CUMM (4-12)
[2016-12-22] MEDS ORDERED: DEXTROSE 50% 25 GM/50 ML VIAL IV PRN (20:06)
[2016-12-22] MEDS ORDERED: GLUCAGON 1 MG VIAL IM PRN (20:06)
[2016-12-22 20:11] LABS: Albumin 3.2 G/DL (3.4-5.0); Bilirubin,Total 0.7 MG/DL (0.2-1.0); Potassium 4.6 MMOL/L (3.5-5.1); Total Protein 7.3 G/DL (6.4-8.3)
[2016-12-22] MEDS: FAMOTIDINE 20 MG/2 ML VIAL IV SCH (20:16)
[2016-12-22] MEDS: methylPREDNISolone SOD SUC 125 MG/2 ML VIAL IV SCH (20:16)
[2016-12-22] MEDS: SODIUM CHLORIDE 0.45% 1,000 ML IV SCH (20:16)
--- NOTE | 2016-12-22 20:17 | XRay Report ---
XR chest 1V portable Indication: Shortness of breath Comparison: 05 August 2016 Findings: The heart and mediastinum are normal in size and configuration. The pulmonary vascularity is normal in caliber. No lung infiltrates, effusions, pneumothorax or other abnormality is demonstrated. Impression: Normal chest x-ray PROCEDURE INTERPRETED AT [facility] DEPARTMENT OF RADIOLOGY Final Report Signed by: Dr. Lincoln Botello
[2016-12-22] MEDS ORDERED: MORPHINE 2 MG/1 ML SYRINGE IV SCH (20:43)
[2016-12-22] MEDS: MORPHINE 2 MG/1 ML SYRINGE IV PRN ×2 (20:43→23:50)
[2016-12-22] MEDS ORDERED: MORPHINE 2 MG/1 ML SYRINGE ONE (20:47)
[2016-12-22] MEDS: CARVEDILOL 6.25 MG TABLET PO SCH (21:08)
[2016-12-22] MEDS: INSULIN LISPRO 100 UNIT/ML SUBCUT SCH (21:14)
[2016-12-23] MEDS: methylPREDNISolone SOD SUC 125 MG/2 ML VIAL IV SCH ×2 (00:50→08:10)
[2016-12-23] MEDS: diphenhydrAMINE 50 MG/1 ML VIAL IV SCH ×2 (00:50→06:14)
[2016-12-23] MEDS: MORPHINE 2 MG/1 ML SYRINGE IV PRN ×2 (04:12→08:18)
[2016-12-23 05:46] LABS: Hematocrit 35.1 VOL% (42.0-52.0); Hemoglobin 12.4 GM/DL (14.0-18.0); Immature Granulocytes % 0.9 %; Immature Granulocytes Absolute 0.07 #; Lymphocytes # 0.8 10*3/uL (1.4-4.0); Mean Corpuscular HGB Conc 35.3 GM/DL (32-36); Mean Corpuscular Hemoglobin 32 PG (27-34); Mean Corpuscular Volume 89.3 FL (87-102); Mean Platelet Volume 10.9 FL (9.6-12.0); Monocytes # 0.1 10*3/uL (0.11-0.8); Monocytes % 1.1 % (1.7-12.7); Neutrophils # 6.6 10*3/uL (1.4-7.4); Platelet Count 125 T/CUMM (130-400); Red Blood Count 3.93 MC/CUMM (3.8-5.5); Red Cell Distribution Width 14.1 % (9.3-17.3); White Blood Count 7.6 T/CUMM (4-12)
[2016-12-23 06:14] LABS: Albumin 3.1 G/DL (3.4-5.0); Bilirubin,Total 0.5 MG/DL (0.2-1.0); Calcium 8.7 MG/DL (8.5-10.1); Osmolality,Calculated 280.1 MOS/KG (273-304); Potassium 4.1 MMOL/L (3.5-5.1); Total Protein 6.9 G/DL (6.4-8.3)
[2016-12-23] MEDS: INSULIN LISPRO 100 UNIT/ML SUBCUT SCH ×4 (08:09→20:35)
[2016-12-23] MEDS: FAMOTIDINE 20 MG/2 ML VIAL IV SCH ×2 (08:09→20:34)
[2016-12-23] MEDS ORDERED: GLUCAGON 1 MG VIAL IM PRN (08:54)
[2016-12-23] MEDS ORDERED: DEXTROSE 50% 25 GM/50 ML VIAL IV PRN (08:54)
[2016-12-23] MEDS ORDERED: MAGNESIUM CITRATE 300 ML BOTTLE PO ONE (09:46)
[2016-12-23] MEDS: SODIUM CHLORIDE 0.45% 1,000 ML IV SCH (09:46)
[2016-12-23] MEDS: CARVEDILOL 6.25 MG TABLET PO SCH ×2 (09:49→20:35)
--- NOTE | 2016-12-23 09:52 | XRay Report ---
XR KUB , Pancreatitis Indication: Abdominal pain Comparison: None available Findings: No free fluid or free air seen. Prominent loops of small bowel are present in the mid abdomen. Otherwise the bowel gas pattern appears within normal limits. No abnormal calcifications are present. No other abnormality is identified. Impression: Prominent loops of small bowel are present in the mid abdomen, could indicate ileus versus gastroenteritis. PROCEDURE INTERPRETED AT [facility] DEPARTMENT OF RADIOLOGY Final Report Signed by: Dr. Lincoln Botello
--- NOTE | 2016-12-23 10:49 | Hospitalist Progress Note ---
Assessment and Plan (1) Angioedema Status: Acute Assessment and plan: C inhibitor esterase pending, no more lewis or arb. Completely resolved. Current Visit: Yes (2) Hypertension Status: Chronic Assessment and plan: coreg 6.25 mg po bid, hydralazine 25 mg po tid Current Visit: No Qualifiers: Hypertension type: essential hypertension Qualified Code(s): I10 - Essential (primary) hypertension (3) Diabetes mellitus Status: Acute Assessment and plan: restarted insulin Current Visit: No Qualifiers: Diabetes mellitus type: type 2 (4) Constipation Status: Acute Assessment and plan: mag citrate Current Visit: Yes Hospitalist: Subjective Interval history: Patient's tongue edema resolved quickly, has abdominal pain. KUB shows significant amount of stool. Started him on coreg and will observe for two hour then move up Exam - Constitutional Vitals: Period Temp Pulse Resp BP Sys/Mendoza Pulse Ox Last 24 Hr 97.0 F-98.6 F 86-108 15-29 126-166/86-106 95-99 Exam: Heart Rate-[RRR] Lungs-[CTAB] GI-[+bs soft, NT] Ext-[no edema] Neuro [Motor 5/5], [alert and oriented times 3] psych [normal mood and affect] General [no acute distress] tongue edema completely resolved Results - Labs CBC & BMP: 12/23/16 04:38 12/23/16 04:38 Lab Results: I have reviewed the past 24 hour labs - Diagnostic Findings Procedure: Abdominal x-ray: image reviewed by me (significant constipation )
[2016-12-23] MEDS: methylPREDNISolone SOD SUC 40 MG/1 ML VIAL IV SCH ×2 (11:13→22:15)
[2016-12-23] MEDS: INSULIN ASPART PROTAMINE/ASPART 70/30 100 UNIT/ML SUBCUT SCH ×2 (11:25→20:35)
[2016-12-23] MEDS: hydrALAZINE 25 MG TABLET PO SCH ×2 (14:07→20:34)
[2016-12-23] MEDS: ROSUVASTATIN 10 MG TABLET PO SCH (20:34)
[2016-12-24] MEDS ORDERED: INSULIN ASPART PROTAMINE/ASPART 70/30 100 UNIT/ML SUBCUT SCH (08:18)
[2016-12-24] MEDS: ALLOPURINOL 300 MG TABLET PO SCH (08:45)
[2016-12-24] MEDS: CARVEDILOL 6.25 MG TABLET PO SCH (08:45)
[2016-12-24] MEDS: INSULIN LISPRO 100 UNIT/ML SUBCUT SCH ×4 (08:45→21:43)
[2016-12-24] MEDS: AMITRIPTYLINE 25 MG TABLET PO SCH (08:45)
[2016-12-24] MEDS: hydrALAZINE 25 MG TABLET PO SCH ×3 (08:45→21:42)
[2016-12-24] MEDS: FAMOTIDINE 20 MG/2 ML VIAL IV SCH ×2 (08:45→21:42)
[2016-12-24] MEDS: methylPREDNISolone SOD SUC 40 MG/1 ML VIAL IV SCH (11:51)
--- NOTE | 2016-12-24 15:30 | Hospitalist Progress Note ---
Assessment and Plan (1) Angioedema Status: Acute Assessment and plan: resolved.C inhibitor esterase pending, no more lewis or arb Current Visit: Yes (2) Hypertension Status: Chronic Assessment and plan: Increase Coreg to 12.5bid, follow response Current Visit: No Qualifiers: Hypertension type: essential hypertension Qualified Code(s): I10 - Essential (primary) hypertension (3) Diabetes mellitus Status: Acute Assessment and plan: Poorly controlled due to steroids Plan increase 70/30 to 40bid switch steroids to po Current Visit: No Qualifiers: Diabetes mellitus type: type 2 (4) Constipation Status: Acute Assessment and plan: continue current regime Current Visit: Yes (5) Dyslipidemia Status: Acute Assessment and plan: continue with statins Current Visit: Yes Hospitalist: Subjective Interval history: Patient seen. Symptoms have improved but blood sugar is still poorly controlled Exam - Constitutional Vitals: Period Temp Pulse Resp BP Sys/Mendoza Pulse Ox Last 24 Hr 97.2 F-99.3 F 85-125 16-28 142-195/83-120 95-98 General appearance: no acute distress - Head Head exam: Present: normal inspection - Respiratory Respiratory exam: Present: clear to auscultation bilaterally - Cardiovascular Cardiovascular exam: Present: regular rate and rhythm - GI/Abdominal GI/Abdominal exam: Present: normal bowel sounds - Extremities Exam Extremities exam: Present: normal inspection Results - Labs CBC & BMP: 12/23/16 04:38 12/23/16 04:38 Lab Results: I have reviewed the past 24 hour labs
[2016-12-24] MEDS ORDERED: ENOXAPARIN 40 MG/0.4 ML SYRINGE SUBCUT SCH (16:00)
[2016-12-24] MEDS: INSULIN ASPART PROTAMINE/ASPART 70/30 100 UNIT/ML SUBCUT SCH (18:00)
[2016-12-24] MEDS: ROSUVASTATIN 10 MG TABLET PO SCH (21:42)
[2016-12-24] MEDS: CARVEDILOL 12.5 MG TABLET PO SCH (21:42)
[2016-12-25] MEDS ORDERED: predniSONE 20 MG TABLET PO SCH (09:00)
[2016-12-25] MEDS: ALLOPURINOL 300 MG TABLET PO SCH (09:07)
[2016-12-25] MEDS: hydrALAZINE 25 MG TABLET PO SCH (09:07)
[2016-12-25] MEDS: AMITRIPTYLINE 25 MG TABLET PO SCH (09:07)
[2016-12-25] MEDS: CARVEDILOL 12.5 MG TABLET PO SCH (09:08)
[2016-12-25] MEDS: FAMOTIDINE 20 MG/2 ML VIAL IV SCH (09:08)
[2016-12-25] MEDS: INSULIN ASPART PROTAMINE/ASPART 70/30 100 UNIT/ML SUBCUT SCH (09:08)
[2016-12-25] MEDS: INSULIN LISPRO 100 UNIT/ML SUBCUT SCH ×2 (09:08→11:47)
--- NOTE | 2016-12-25 10:04 | Discharge Summary ---
<Lex Ghosh - Last Filed: 12/25/16 10:05> Hospital Course - Hospital Course Hospital Course: This is a very pleasant 56 year old male that presented to the ED at [facility] on 12/22 for evaluation of lip and tongue swelling. The patient has a very impressive medical history of hypertension, pancreatitis, diabetes mellitus, benign prostate hypertrophy, and GERD. The patient has a surgical history of left ankle hardware placement. The patient reported the onset of these issues two days prior to presentation and reports an event similar in nature in the past. He reported that he had been taking Lisinopril for a year. He reported his last medication administration on the morning of presentation. The patient was subsequently admitted to the hospitalist services for continuation care. The patient was admitted to the critical care unit. He was given intravenous steroids, intravenous fluids, and monitored closely. His condition improved greatly. He was transferred to a general medical-surgical unit on 12/23. His condition has remained stable. His blood pressure medications were adjusted. Today, we feel that he is appropriate for discharge home to follow-up with his PCP as directed. Discussed in great detail his current medication regimen and the allergy to angiotension-converting enzyme agents. Discharge Plan - Discharge Data Disposition: Disch To Home/Self Care - Discharge Medications New Acetaminophen Tab [Tylenol Tab] 650 mg PO Q4H PRN #0 tablet PRN Reason: Fever, Headache, Mild Pain HYDROcodone/ACETAMIN 10-325 [[place] 10-325] 1 tablet PO Q6H PRN #20 tablet PRN Reason: Pain predniSONE TAB [PredniSONE] 40 mg PO DAILY #3 tablet Insulin Aspart Prot/Asp 70/30 [NovoLOG Mix 70/30] 40 unit SUBCUT BID W/MEALS #7 unit hydrALAZINE TAB [Apresoline Tab] 25 mg PO TID #90 tablet Continue Allopurinol 150 mg PO DAILY Amitriptyline [Elavil] 25 mg PO DAILY metFORMIN [Glucophage] 850 mg PO BID W/MEALS Rosuvastatin [Crestor] 10 mg PO BEDTIME Labetalol Tab [Trandate Tab] 200 mg PO BID Discontinued Insulin Aspart Prot/Asp 70/30 [NovoLOG Mix 70/30] 30 unit SUBCUT BID HYDROcodone/ACETAMIN 10-325 [[place] 10-325] 1 tablet PO Q6H PRN #30 tablet PRN Reason: Pain Lisinopril/Hydrochlorothiazide [Lisinopril-Hctz 20-12.5 mg Tab] 1 each PO DAILY Omeprazole 40 mg PO DAILY - Follow Up or Referral - Forms/Instructions Exam - Constitutional Vitals: Period Temp Pulse Resp BP Sys/Mendoza Pulse Ox Last 24 Hr 97.7 F-98.8 F 70-97 18-20 147-167/88-114 96-98 Discharge Results Procedures and tests throughout hospitalization: Pending Orders 12/22/16 19:27 C1 Esterase Inhibitor Antigen Stat C1 Esterase Inhibitor,Function Stat Labs on day of discharge: Labs from last 24 hours 12/25/16 12/24/16 12/24/16 07:18 21:04 17:29 POC Glucose 84 261 H 76 DS: Provider Date of admission: 12/22/16 18:03 Primary care physician: Mechelle Adams DO Attending physician on admission: Eileen Dodd MD Discharging clinician: Lex Ghosh CNP <Laurita Doe - Last Filed: 12/25/16 11:30> Hospital Course - Hospital Course Hospital Course: His blood sugar was running high due to steroids and his meds were adjusted. - Time spent with patient Time with patient DS: Greater than 30 minutes (Time spent: 35mins) Diagnosis - Discharge Diagnosis (1) Angioedema Status: Acute (2) Hypertension Status: Chronic (3) Diabetes mellitus Status: Acute (4) Constipation Status: Acute (5) Dyslipidemia Status: Acute Discharge Plan - Discharge Data Condition at Discharge: Stable Discharge Diet: diabetic diet Activity: resume usual activities as tolerated - Forms/Instructions Additional Discharge Instructions: follow with PCP in 1week Exam - Constitutional General appearance: no acute distress - Head Head exam: Present: normal inspection - Respiratory Respiratory exam: Present: clear to auscultation bilaterally - Cardiovascular Cardiovascular exam: Present: regular rate and rhythm - GI/Abdominal GI/Abdominal exam: Present: normal bowel sounds - Extremities Exam Extremities exam: Present: normal inspection
[2016-12-25 11:32] VITALS: BP 148/91
== END 2016-12-25 14:07 | disposition home or self-care (01) | DRG 916 ==
LOC: N.ED 16:58 → SUATTDRO 18:03 → N.EDINP 18:03 → N.CC 19:11 → N.5E 12-23 18:46
PROVIDERS: ADMIT Internal Medicine; ATTEND Internal Medicine